=== PATIENT | female | born 1985 | race Caucasian/White ===

== ENCOUNTER 2021-04-26 18:36 | Emergency (ER) | payer OTHER ==
[2021-04-26 19:56] LABS: BASOPHIL 0.3 % (0-2); EOSINOPHIL 0.4 % (0-5); HCT 41.6 % (37.0-47.0); HGB 13.2 g/dl (12.5-16.0); LYMPHOCYTE 20.3 % (15-48); MCH 30.6 pg (25.0-31.0); MCHC 31.7 g/dL (32.0-36.0); MCV 96.3 fL (78.0-100.0); MONOCYTE 5.7 % (0-12); MPV 9.4 fL (6.0-9.5); NEUTROPHIL 72.9 % (41-80); NRBC 0; PLT 345 K/uL (150-400); RBC 4.32 M/uL (4.20-5.40); RDW 13.2 % (11.5-14.0); WBC 11.4 K/uL (4.0-10.5)
[2021-04-26 20:13] LABS: BILIRUBIN - TOTAL 0.2 mg/dL (0.2-1.0); BUN/CREAT RATIO (CALC) 8.3 RATIO; CREATININE 0.72 mg/dL (0.51-0.95); GLOBULIN (CALCULATION) 3.6 g/dL; POTASSIUM 3.7 mmol/L (3.5-5.1); TOTAL PROTEIN 7.6 g/dL (6.4-8.2)
== END 2021-04-27 01:40 | disposition left against medical advice (07) ==
LOC: FER 18:36
PROVIDERS: Emergency Medicine
DX: Z53.8 Procedure and treatment not carried out for other reasons (principal)
CPT/HCPCS: 36415; 70450; 80053; 85025